=== PATIENT | female | born 1995 | race African-American/Black ===

== ENCOUNTER 2018-02-09 17:29 | Emergency (ER) | payer OTHER, SELFPAY ==
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
== END 2018-02-09 20:24 | disposition home or self-care (01) ==
LOC: ERS 17:29
DX: S16.1XXA Strain of muscle, fascia and tendon at neck level, initial encounter (principal); M25.562 Pain in left knee; V89.2XXA Person injured in unspecified motor-vehicle accident, traffic, initial encounter
CPT/HCPCS: 72125